=== PATIENT | male | born 1975 | race Hispanic/Latino ===

== ENCOUNTER → 2020-04-05 | Outpatient (CLI) | payer OTHER | LOC: US 07:40 | PROVIDERS: ATTEND Family Medicine | DX: R10.9 Unspecified abdominal pain (principal) | CPT/HCPCS: 76700 ==

== ENCOUNTER → 2020-04-19 | Outpatient (CLI) | payer OTHER | LOC: NM 06:58 | PROVIDERS: ATTEND Family Medicine | DX: R10.9 Unspecified abdominal pain (principal) | CPT/HCPCS: 78227; A9537 ==